=== PATIENT | male | born 1995 | race African-American/Black ===

== ENCOUNTER 2016-09-18 18:44 | Emergency (ER) | payer OTHER ==
[~2016-09-18] VITALS: Ht 167.6 cm; Wt 86.1 kg
[2016-09-18] MEDS ORDERED: NORCO 7.5/321 TABLET PO (21:14)
[2016-09-18] MEDS ORDERED: MOTRIN800 MG PO (21:14)
[2016-09-18 21:40] VITALS: BP 163/93
== END 2016-09-18 21:40 | disposition home or self-care (01) ==
LOC: EME 18:44
DX: S90.32XA Contusion of left foot, initial encounter (principal); W20.8XXA Other cause of strike by thrown, projected or falling object, initial encounter
CPT/HCPCS: 73630; 99281; 99284

== ENCOUNTER 2016-10-02 02:25 | Emergency (ER) | payer OTHER ==
[~2016-10-02] VITALS: Ht 167.6 cm; Wt 89.2 kg
[~2016-10-02 02:25] MED LIST: MOTRIN800 MG PO; NORCO 7.5/321 TABLET PO
[2016-10-02 03:20] VITALS: BP 130/78
== END 2016-10-02 03:59 | disposition home or self-care (01) ==
LOC: EXP 02:25 → EME 02:25 → EXP 03:59
DX: S90.32XD Contusion of left foot, subsequent encounter (principal); W20.8XXD Other cause of strike by thrown, projected or falling object, subsequent encounter; Z02.79 Encounter for issue of other medical certificate
CPT/HCPCS: 99281; 99284